=== PATIENT | female | born 1980 | race African-American/Black ===

== ENCOUNTER 2017-10-26 20:53 | Emergency (ER) | payer OTHER ==
[~2017-10-26] VITALS: Ht 170.2 cm; Wt 92.0 kg
[2017-10-26 20:54] VITALS: Ht 170.2 cm; Wt 92.0 kg
--- NOTE | 2017-10-26 23:12 | RADRPT ---
PROCEDURE: CHEST - 1 VIEW CLINICAL INDICATION: 37-year-old female with chest pain. TECHNIQUE: A single frontal AP semi-erect view of the chest was performed portably. The images we re reviewed on a PACS workstation. COMPARISON: None. FINDINGS: The cardiomediastinal silhouette has a normal appearance. There is no evidence for an infiltrate. There is no evidence for congestive heart failure. There is no evidence for pneumothorax. The osseou s structures are intact. IMPRESSION: No evidence for active cardiopulmonary disease. .Efrain Ireland MD, MD Date Time Electronically viewed and signed by .Efrain Ireland MD, on 10/26/2017 23:12 .M/
[2017-10-26 23:18] LABS: BASOPHIL # 0.1 10^3/ul (0.0-0.1); BASOPHILS % 0.6 % (0.0-2.0); EOSINOPHILS # 0.4 10^3/ul (0.0-0.5); EOSINOPHILS % 3.6 % (0.0-7.0); HEMOGLOBIN 14.4 g/dl (12.0-16.0); LYMPHOCYTES # 3.8 10^3/ul (0.8-2.9); MEAN CORPUSCULAR HEMOGLOBIN 27.2 pg (29.0-33.0); MEAN CORPUSCULAR HGB CONC 32.7 g/dl (32.0-37.0); MEAN CORPUSCULAR VOLUME 83.2 fl (82.0-101.0); MEAN PLATELET VOLUME 11.7 fl (7.4-10.4); MONOCYTE # 0.5 10^3/ul (0.3-0.9); MONOCYTES % 4.8 % (0.0-11.0); NEUTROPHIL # 5.6 10^3/ul (1.6-7.5); NEUTROPHILS % 53.6 % (39.0-77.0); PLATELET COUNT 282 10^3/UL (140-415); RED BLOOD COUNT 5.29 10^6/ul (4.20-5.40); RED CELL DISTRIBUTION WIDTH 13.1 % (11.5-14.5); WHITE BLOOD COUNT 10.4 10^3/ul (4.8-10.8)
[2017-10-26 23:38] LABS: ALANINE AMINOTRANSFERASE 30 IU/L (13-69); ALBUMIN 4.8 g/dl (3.3-4.9); ALBUMIN/GLOBULIN RATIO 1.17; ALKALINE PHOSPHATASE 68 IU/L (42-121); ASPARTATE AMINO TRANSFERASE 25 IU/L (15-46); BILIRUBIN,INDIRECT 0.3 mg/dl (0-1.1); BILIRUBIN,TOTAL 0.3 mg/dl (0.2-1.3); BLOOD UREA NITROGEN 16 mg/dl (7-20); CALCIUM 9.4 mg/dl (8.4-10.2); CARBON DIOXIDE 25 mmol/L (21-31); CREATININE 0.85 mg/dl (0.44-1.00); GLUCOSE 94 mg/dl (70-220); POTASSIUM 4.2 mmol/L (3.5-5.1); SODIUM 143 mmol/L (135-144); TOTAL PROTEIN 8.9 g/dl (6.1-8.1)
[2017-10-26 23:45] LABS: ANION GAP 19 (8-16); CHLORIDE 103 mmol/L (97-110)
[2017-10-26 23:47] LABS: B-TYPE NATRIURETIC PEPTIDE 35 PG/ML (0-125); TROPONIN-I < 0.012 ng/ml (0.00-0.12)
--- NOTE | 2017-10-26 23:55 | ERD ---
ER Documentation Chief Complaint Chief Complaint c/o CP with L arm numbness. "sharp." Non-provoked. HPI This is a 37-year-old female who comes in with chest pain and left arm numbness. She said it was sharp and unprovoked. No fevers no chills. No nausea no vomiting. Patient states she was very anxious. Denies any other current complaints. ROS All systems reviewed and are negative except as per history of present illness. PMhx/Soc Medical and Surgical Hx: pt denies Medical Hx, pt denies Surgical Hx History of Surgery: No Anesthesia Reaction: No Hx Neurological Disorder: No Hx Respiratory Disorders: No Hx Cardiac Disorders: No Hx Alcohol Use: No Hx Substance Use: No Hx Tobacco Use: No Smoking Status: Never smoker Physical Exam Vitals Vital Signs Date Time Temp Pulse Resp B/P Pulse Ox O2 Delivery O2 Flow Rate FiO2 10/26/17 22:48 98.1 92 20 141/80 97 Room Air 10/26/17 20:54 98.4 121 20 167/96 97 Physical Exam Const: [] Head: Atraumatic Eyes: Normal Conjunctiva ENT: Normal External Ears, Nose and Mouth. Neck: Full range of motion..~ No meningismus. Resp: Clear to auscultation bilaterally Cardio: Regular rate and rhythm, no murmurs Abd: Soft, non tender, non distended. Normal bowel sounds Skin: No petechiae or rashes Back: No midline or flank tenderness Ext: No cyanosis, or edema Neur: Awake and alert Psych: Normal Mood and Affect Result Diagram: 10/26/17224510/26/176 Results 24 hrs Laboratory Tests Test 10/26/17 22:46 White Blood Count 10.410^3/ul Red Blood Count 5.2910^6/ul Hemoglobin 14.4g/dl Hematocrit 44.0% Mean Corpuscular Volume 83.2fl Mean Corpuscular Hemoglobin 27.2pg Mean Corpuscular Hemoglobin Concent 32.7g/dl Red Cell Distribution Width 13.1% Platelet Count 85636^3/UL Mean Platelet Volume 11.7fl Neutrophils % 53.6% Lymphocytes % 37.0% Monocytes % 4.8% Eosinophils % 3.6% Basophils % 0.6% Nucleated Red Blood Cells % 0.0/100WBC Neutrophils # 5.610^3/ul Lymphocytes # 3.810^3/ul Monocytes # 0.510^3/ul Eosinophils # 0.410^3/ul Basophils # 0.110^3/ul Nucleated Red Blood Cells # 0.010^3/ul Sodium Level 143mmol/L Potassium Level 4.2mmol/L Chloride Level 103mmol/L Carbon Dioxide Level 25mmol/L Anion Gap 19 Blood Urea Nitrogen 16mg/dl Creatinine 0.85mg/dl Glucose Level 94mg/dl Calcium Level 9.4mg/dl Total Bilirubin 0.3mg/dl Direct Bilirubin 0.00mg/dl Indirect Bilirubin 0.3mg/dl Aspartate Amino Transf (AST/SGOT) 25IU/L Alanine Aminotransferase (ALT/SGPT) 30IU/L Alkaline Phosphatase 68IU/L Troponin I < 0.012ng/ml B-Type Natriuretic Peptide 35PG/ML Total Protein 8.9g/dl Albumin 4.8g/dl Globulin 4.10g/dl Albumin/Globulin Ratio 1.17 Procedures/MDM EKG: Rate/Rhythm: [Normal Sinus Rhythm] QRS, ST, T-waves: [No changes consistent w/ acute ischemia] Impression: [No evidence of ischemia or arrhythmia] Chest X-ray 1V Interpreted by me: Soft Tissue: No acute abnormalities Bones: No acute abnormalities Mediastinum/Cardiac Silhouette/Lungs: [No acute abnormalities] Patient's thoracic symptoms have stabilized while in the department and are stable for outpatient follow up. Exam and work up not consistent w/ ischemia, arrhythmia, PE or dissection. Departure Diagnosis: Primary Impression: Chest pain Chest pain type: unspecified Qualified Code: R07.9 - Chest pain, unspecified type Condition: Stable DORI BRANDT Oct 26, 2017 23:55
[2017-10-26] MEDS ORDERED: LORA-441 PO (23:59)
[2017-10-27 00:16] VITALS: BP 135/81; PULSE 85; RESP 19; TEMP 98.1
== END 2017-10-27 00:17 | disposition home or self-care (01) ==
LOC: E/R 20:53
DX: R07.9 Chest pain, unspecified (principal); F41.9 Anxiety disorder, unspecified; R06.02 Shortness of breath
CPT/HCPCS: 36415; 71010; 80053; 83880; 84484; 85025; 93005

== ENCOUNTER 2018-02-28 07:01 | Emergency (ER) | END 2018-02-28 08:16 | disposition home or self-care (01) ==

== ENCOUNTER 2018-03-19 10:58 | Emergency (ER) | END 2018-03-19 14:56 | disposition home or self-care (01) ==